=== PATIENT | male | born 1995 | race Two or more races ===

== ENCOUNTER 2018-06-08 16:37 | Emergency (ER) | payer SELFPAY ==
[~2018-06-08] VITALS: Ht 182.9 cm; Wt 113.4 kg
[2018-06-08 18:30] VITALS: BP 140/64
[2018-06-08] MEDS ORDERED: AMOX1TAB61 PO (18:50)
--- NOTE | 2018-06-08 18:51 | PHYS DOC ---
Adult General Chief Complaint Chief Complaint: ANIMAL BITE HPI HPI Patient is a 22 year old male who presents with puncture bites to the leg. The patient states he was walking to work this morning when pit bull bit him. He went to the house where he sees the dog, and the drill press operator told him it wasn't his dog. He has already reported to animal control. He is up to date on his tetanus booster. Review of Systems Review of Systems Constitutional: Denies fever or chills [] Respiratory: Denies cough or shortness of breath [] Cardiovascular: No additional information not addressed in HPI [] Integument: See HPI Neurologic: Denies headache, focal weakness or sensory changes [] Endocrine: Denies polyuria or polydipsia [] All other systems were reviewed and found to be within normal limits, except as documented in this note. Allergies Allergies Allergies Coded Allergies Type Severity Reaction Last Updated Verified No Known Drug Allergies 06/08/18 No Physical Exam Physical Exam Constitutional: Well developed, well nourished, no acute distress, non-toxic appearance. [] Cardiovascular:Heart rate regular rhythm, no murmur [] Lungs & Thorax: Bilateral breath sounds clear to auscultation [] Skin: four punctures to the right leg that are fairly deep Back: No tenderness, no CVA tenderness. [] Extremities: No tenderness, no cyanosis, no clubbing, ROM intact, no edema. [] Neurologic: Alert and oriented X 3, normal motor function, normal sensory function, no focal deficits noted. [] Psychologic: Affect normal, judgement normal, mood normal. [] EKG EKG [] Radiology/Procedures Radiology/Procedures [] Course & Med Decision Making Course & Med Decision Making Pertinent Labs and Imaging studies reviewed. (See chart for details) []The puncture wounds were irrigated and scrubbed with Betadine. The patient tolerated this well. Dragon Disclaimer Dragon Disclaimer This electronic medical record was generated, in whole or in part, using a voice recognition dictation system. Departure Departure Impression: Primary Impression: Dog bite Disposition: 01 HOME, SELF-CARE Condition: STABLE Referrals: UNKNOWN PCP NAME (PCP) Patient Instructions: Animal Bite Additional Instructions: Take the antibiotic as directed. Follow-up with animal control to see if they were able to find the animal. You may check with the Health Department to see about rabies prophylaxis. If worsening return to the emergency department. Scripts Amoxicillin/Potassium Clav (AUGMENTIN 875-125 TABLET) 1 Each Tablet 1 TAB PO BID for dog bite, #20 TAB Prov: ROSAURA CAMARA APRN 06/08/18 ROSAURA CAMARA APRN Jun 08, 2018 18:51
== END 2018-06-08 18:55 | disposition home or self-care (01) ==
LOC: ER 16:37
DX: S81.851A Open bite, right lower leg, initial encounter (principal); W54.0XXA Bitten by dog, initial encounter; Y93.01 Activity, walking, marching and hiking; Y92.89 Other specified places as the place of occurrence of the external cause; Y99.8 Other external cause status
CPT/HCPCS: 99283